=== PATIENT | female | born 1985 | race Caucasian/White ===

== ENCOUNTER 2020-11-20 01:55 | Outpatient (CLI) | payer OTHER, SELFPAY ==
[2020-11-20 18:12] LABS: SARS-CoV-2 RNA PCR Negative
== END 2020-11-20 01:56 | disposition home or self-care (01) ==
LOC: ANHCOVIDDT 01:55
PROVIDERS: Family Provider Obstetrics & Gynecology; PCP Family Medicine; Visit Provider Obstetrics & Gynecology
DX: Z01.812 Encounter for preprocedural laboratory examination (principal); Z20.822 Contact with and (suspected) exposure to COVID-19
CPT/HCPCS: C9803; U0003; U0005

== ENCOUNTER 2020-11-20 08:53 | Outpatient (CLI) | payer OTHER, SELFPAY | END 2020-11-20 08:54 | disposition home or self-care (01) | LOC: ANHSURGERY 08:57 | PROVIDERS: Family Provider Obstetrics & Gynecology; PCP Family Medicine; Visit Provider Obstetrics & Gynecology | DX: Z01.812 Encounter for preprocedural laboratory examination (principal); N83.209 Unspecified ovarian cyst, unspecified side | CPT/HCPCS: 36415; 86850; 86900; 86901 ==

== ENCOUNTER 2020-11-23 02:42 | Day surgery (SDC) | payer OTHER, SELFPAY ==
[2020-11-14 17:53] VITALS: BMI 24.0
--- NOTE | 2020-11-20 14:19 | PM.IMHP ---
H&P: HPI History of Present Illness Date/Time: 11/20/20 14:19 Chief Complaint: l ov cyst Narrative: Letty Blue is a 34 year old female C3 P3 who was admitted for laparoscopic left salpingo-oophorectomy. She has a complex left ovarian cyst with severe pelvic pain. Risks and benefits reviewed including but not exclusive of , aspiration pneumonia, bleeding, transfusion, perforation injury to bowel, bladder, ureters or other internal organs with need for laparotomy. She received the [employer] handout entitled laparoscopy. She had all questions answered. She asked to proceed Review of Systems Review of Systems: All systems reviewed & are unremarkable except as noted in HPI and below PMFSH Past Medical History Medical History Environmental allergies Surgical History Surgical History Hx of section 2013 and 2105 Hx of dilation and curettage 2011 Family History Family History Grandparent Family history of elevated blood lipids Family history of malignant neoplasm Family history of Alzheimer's disease Social History Social History Smoking status: Never smoker Second hand tobacco smoke exposure: No Alcohol intake: current Substance use: never Substance use type: does not use Gender identity (if verbalized by the patient): Female Spiritual care concerns: No Meds Home Medications and Allergies Home Medications Medication Instructions Recorded Confirmed Type cetirizine 10 mg tablet 10 mg PO DAILY PRN 10/30/20 11/14/20 History fluticasone propionate 50 1 spray INTRANASAL DAILY 10/30/20 11/14/20 History mcg/actuation nasal spray,suspension azelastine 137 mcg (0.1 %) nasal 1 spray INTRANASAL Q12H #30 ml 11/08/20 11/14/20 Rx spray aerosol Adults Multivitamin 1 cap PO DAILY 11/14/20 11/14/20 History Allergies Allergy/AdvReac Type Severity Reaction Status Date / Time No Known Allergies Allergy Verified 11/14/20 17:57 Exam Const: General: no acute distress Eyes: General: appearance normal, both eyes and all related structures Neck: Neck: supple and no JVD Thyroid: thyroid normal Resp: Effort & Inspection: normal respiratory effort Auscultation: clear to auscultation bilaterally Cardio: Rate: regular rate Rhythm: regular rhythm GI: Inspection: non-distended GI Palp: Yes Soft to palpation, No Tenderness to palpation present (GI) and No Guarding due to palpation present (GI) Auscultation: normal bowel sounds : General: Yes bladder normal to inspection External Female Exam: normal external appearance Speculum Exam - Vagina: normal appearance of the vagina and normal vaginal discharge Speculum Exam - Cervix: normal appearance of the cervix Bimanual exam- vagina & uterus: soft Bimanual Exam- Adnexa, other: tender and Adnexal mass present on the left Skin: General skin exam: no rashes or lesions noted Extrem: General: normal to inspection and no edema Psych: Mental Status: mental status grossly normal Affect: normal affect Assessment and Plan Additional Plan impression complex left ovarian cyst Plan: Left laparoscopic salpingo-oophorectomy
[2020-11-23] VITALS (9 sets, daily range): BP systolic 91–106; BP diastolic 52–82; PULSE 52–80; RESP 13–22; TEMP 36.4–36.7; O2SAT 100; BMI 24.2
--- NOTE | 2020-11-23 06:40 | WPDHPUPDATE1 ---
History and Physical Update Update Date/Time: 11/23/20 06:40 History and Physical has been reviewed, including an updated exam of the patient. There are NO changes in the patient's condition. Risks, benefits, and alternatives have been discussed and questions answered. Patient agrees to proceed with procedure.
--- NOTE | 2020-11-23 08:53 | WPDANESEPPF ---
Anes - Initial Pre Proc Eval Procedure: Operation Date: 11/23/20 12:30 Proposed Procedures p Laparoscopic Left Salpingo Oophorectomy - Killian Davidson MD Date/Time: 11/23/20 08:53 Surgeon: Killian Davidson MD Pre Op Diagnosis: Left Ovarian Cyst, Pelvic Pain Patient Data Age: 34 Gender: F Height: 1.63 m Weight: 63.5 kg Allergies Allergy/AdvReac Type Severity Reaction Status Date / Time No Known Allergies Allergy Verified 11/23/20 10:38 Home Medications Medication Instructions Recorded Confirmed Type cetirizine 10 mg tablet 10 mg PO DAILY PRN 10/30/20 11/23/20 History fluticasone propionate 50 1 spray INTRANASAL DAILY 10/30/20 11/23/20 History mcg/actuation nasal spray,suspension azelastine 137 mcg (0.1 %) nasal 1 spray INTRANASAL Q12H #30 ml 11/08/20 11/23/20 Rx spray aerosol Adults Multivitamin 1 cap PO DAILY 11/14/20 11/23/20 History hydrocodone-acetaminophen [Woodruff] 1 tablet PO Q4H PRN #30 tablet 11/23/20 Rx Patient hx anesthesia problems: none Family hx anesthesia problems: none PMFSH Past Medical History Medical History Environmental allergies Surgical History Surgical History Hx of section 2013 and 2105 Hx of dilation and curettage 2011 Family History Family History Grandparent Family history of elevated blood lipids Family history of malignant neoplasm Family history of Alzheimer's disease Social History Social History Smoking status: Never smoker Second hand tobacco smoke exposure: No Alcohol intake: current Substance use: never Substance use type: does not use Living arrangements: with family Gender identity (if verbalized by the patient): Female Spiritual care concerns: No Anes - Eval Final PreProcedure Day of Procedure 11/23/20 08:53 Patient weight: normal Heart: regular rate and rhythm Lungs: clear to auscultation and normal air movement Airway: Mallampati scale class II Neurological: alert and oriented Last oral intake: >/= 8 hours ASA classification: II Emergent: no Anesthetic plan: proceed Anesthesia type and monitoring: general ETT and standard monitoring Informed Consent: The patient's anesthetic plan and its attendant risks and benefits were discussed with the patient/family/POA. Questions were solicited and answers provided to the satisfaction of the patient/family/POA.
[2020-11-23] MEDS: KETOROLAC 15 MG/ML VIAL (*BKC) IV PUSH (11:04)
[2020-11-23] MEDS: ACETAMINOPHEN 500 MG TABLET 1000 MG PO (11:04)
[2020-11-23] MEDS: LACTATED RINGERS 1,000 ML 30 ML IV CONT (11:04)
--- NOTE | 2020-11-23 12:39 | SUR.OPER ---
Ebl=5ml
--- NOTE | 2020-11-23 12:43 | PM.PROC ---
Procedure Note - Detailed Date of procedure: 11/23/20 Pre-op diagnosis: Left Ovarian Cyst, Pelvic Pain Surgeon: Killian Davidson MD Postop diagnosis: Left ovarian cyst/pelvic pain Procedure: Laparoscopic left salpingo-oophorectomy EBL: 5cc Anesthesia: General endotracheal Complications: Findings: Complex left ovarian cyst. Normal appearing uterus ovaries and tubes otherwise Description of procedure: The patient was prepped and draped in the normal sterile fashion placed in the dorsal lithotomy position. Under excellent general endotracheal anesthesia weighted speculum placed in the posterior fornix of vagina. Anterior lip of the cervix grasped with a single-tooth tenaculum and a Alvarado's cannula inserted and attached to be used later for uterine manipulation. Bladder emptied of clear urine. Weighted speculum was removed. The gloves were changed And infraumbilical incision was made and Veress needle passed in the abdomen. Abdomen filled with CO2 gas [id number]. A 5mm trocar advanced in the abdomen downside visualized. No injury seen. Patient placed in Trendelenburg and a suprapubic incision made the 5mm trocar advanced under direct visualization assuring injury. Left lower quadrant incision made and the 10 trocar advanced under direct visualization assuring injury. Moderate sized ovarian cyst was seen and was actually bleeding the right ovary and tube appeared within normal limits appendix appeared within limits as did the gallbladder and liver edge irrigation was undertaken to the blood that was in the pelvis. The infundibulopelvic structure on the left was skeletonized. This was clamped burned and cut with LigaSure. This was removed through the left lower quadrant incision irrigation undertaken: Until clear and the pedicle appeared dry. The lower site removed. The gas removed from abdomen. The upper site removed and the incisions closed with 4 Monocryl and glue. Instruments removed from vagina. The patient was awakened. She went to recovery in satisfactory condition. All sponge, needle, instrument counts were correct. There were no immediate complications
[2020-11-23] MEDS: fentaNYL CITRATE INJ (*CRX) 100 MCG/2 ML VIAL 25 MCG IV PUSH (13:09)
== END 2020-11-23 14:39 | disposition home or self-care (01) ==
PROVIDERS: Family Provider Obstetrics & Gynecology; PCP Family Medicine; Visit Provider Obstetrics & Gynecology
PROC: (CPT 49320; principal; 2020-11-23 12:30)
DX: N83.202 Unspecified ovarian cyst, left side (principal); R10.2 Pelvic and perineal pain; N83.12 Corpus luteum cyst of left ovary
CPT/HCPCS: 58661; 36415; 86850; 86900; 86901; 88305; A9270; C9803; J1100; J1885; J2250; J2405; J2704; J3010; J7120; U0003; U0005